=== PATIENT | male | born 1970 | race American Indian/Alaskan Native ===

== ENCOUNTER 2017-07-09 16:18 | Emergency (ER) | payer OTHER ==
[2017-07-09 16:36] VITALS: RESP 18; TEMP 98.5; O2SAT 100; BMI 45.0
--- NOTE | 2017-07-09 18:13 | ED PDOC ---
Arrival/HPI - General Chief Complaint: Lower Extremity Problem/Injury Time Seen by Provider: 07/09/17 16:29 Past Medical History - Infectious Disease Hx of Infectious Diseases: None - Pulmonary Hx Asthma: Yes - Psychiatric Hx Psychophysiologic Disorder: No Hx Substance Use: No - Surgical History Hx Orthopedic Surgery: Yes Other/Comment: R knee - Anesthesia Hx Anesthesia Reactions: No Hx Malignant Hyperthermia: No Family/Social History Smoking Status: Never Smoked Hx Alcohol Use: No Hx Substance Use: No Allergies/Home Meds Allergies/Adverse Reactions: Allergies No Known Allergies Allergy (Verified 05/24/15 10:42) Physical Exam Vital Signs Temp Pulse Resp BP Pulse Ox 07/09/17 16:19 98.5 F 65 18 148/84 100 Medical Decision Making - Medication Orders Current Medication Orders: Discontinued Medications Cyclobenzaprine HCl (Flexeril) 10 mg PO STAT STA Stop: 07/09/17 17:27 Ibuprofen (Motrin Tab) 600 mg PO STAT STA Stop: 07/09/17 17:27 Disposition/Present on Arrival - Present on Arrival History of DVT/PE: No History of Uncontrolled Diabetes: No Urinary Catheter: No History of Decub. Ulcer: No History Surgical Site Infection Following: None - Disposition Referrals: PCP,NO [Primary Care Provider] - Follow up with primary
--- NOTE | 2017-07-09 18:18 | ED PDOC ---
Arrival/HPI - General Historian: Patient - History of Present Illness Time/Duration: Prior to Arrival Symptom Onset: Sudden Symptom Course: Improving Quality: Stabbing Severity Level: 9 Activities at Onset: Rest Context: Standing - General Chief Complaint: Lower Extremity Problem/Injury Time Seen by Provider: 07/09/17 16:29 - History of Present Illness Narrative History of Present Illness (Text): 07/09/17 18:03 Patient is a 46 year old male with history of asthma (no previous intubations), who presented with complaints of right foot pain which radiated to patients right buttock. Patient states the pain began suddenly when standing at home last night around 7:30 p.m. He rated the pain 9/10 stating it was exacerbated with walking and relieved when not bearing weight on his right buttock. Patient localizes the pain to his right ankle which it radiating to his right knee and right buttock. Patient denies recent travel, outdoor activities, fevers, chills , nausea, vomiting, diarrhea, chest pain, abdominal pain. PMD: Denies PMH: Denies Surgical history: ACL repair of right lower extremity Family history: DM II Allergies: NKDA (Jose D Michelle) Past Medical History - Provider Review Nursing Documentation Reviewed: Yes - Travel History Have you recently traveled outside [place] w/in the past 3 mons?: No - Infectious Disease Hx of Infectious Diseases: None - Pulmonary Hx Asthma: Yes - Psychiatric Hx Psychophysiologic Disorder: No Hx Substance Use: No - Surgical History Hx Orthopedic Surgery: Yes Other/Comment: R knee - Anesthesia Hx Anesthesia Reactions: No Hx Malignant Hyperthermia: No - Patient History Narrative Patient History: Asthma (Jose D Michelle) Family/Social History - Physician Review Nursing Documentation Reviewed: Yes Family/Social History: Diabetes Smoking Status: Never Smoked Hx Alcohol Use: No Hx Substance Use: No Allergies/Home Meds Allergies/Adverse Reactions: Allergies No Known Allergies Allergy (Verified 05/24/15 10:42) Review of Systems - Review of Systems Constitutional: absent: Fatigue, Fevers Eyes: absent: Vision Changes Respiratory: absent: SOB, Cough, Sputum, Wheezing Cardiovascular: Calf Pain (right). absent: Chest Pain Gastrointestinal: absent: Abdominal Pain, Nausea, Vomiting Musculoskeletal: Back Pain (chronic) Neurological: Headache (chronic). absent: Dizziness Psychiatric: absent: Anxiety Physical Exam Vital Signs Reviewed: Yes Temperature: Afebrile Blood Pressure: Hypertensive Pulse: Regular Respiratory Rate: Normal Appearance: Positive for: Well-Appearing Pain Distress: Mild Mental Status: Positive for: Alert and Oriented X 3 - Systems Exam Head: Present: Atraumatic, Normocephalic Pupils: Present: PERRL Extroacular Muscles: Present: EOMI Conjunctiva: Present: Normal Mouth: Present: Moist Mucous Membranes Neck: Present: Normal Range of Motion Respiratory/Chest: Present: Clear to Auscultation, Good Air Exchange. No: Wheezes, Rhonchi Cardiovascular: Present: Regular Rate and Rhythm, Murmurs, Normal S1, S2 Abdomen: Present: Normal Bowel Sounds. No: Tenderness, Distention Back: No: CVA Tenderness, Pain with Leg Raise Upper Extremity: Present: Normal Inspection. No: Cyanosis, Edema Lower Extremity: Present: Normal Inspection. No: Edema Neurological: Present: GCS=15, CN II-XII Intact, Speech Normal Skin: Present: Warm, Normal Color Psychiatric: Present: Alert, Oriented x 3, Normal Insight, Normal Concentration Vital Signs Temp Pulse Resp BP Pulse Ox 07/09/17 19:05 98.5 F 70 18 135/80 100 07/09/17 16:19 98.5 F 65 18 148/84 100 Medical Decision Making Re-evaluation Time: 18:20 Reassessment Condition: Re-examined, Improved ED Course and Treatment: 07/09/17 18:34 Patient re-evaluated after being administered flexeril and motrin. Patient states his pain is improved. (Jose D Michelle) Patient presents to emergency department complaining of right foot pain radiating to right knee and right buttock. Patient states pain is 9/10 when ambulating. Patient Seen With Resident: In agreement with resident note which contains more details about the patient. Patient was seen and evaluated with resident. Came up with plan and treatment together. Contrary to physical exam of resident, I did note that patient had tenderness along the dorsal side of his right foot. No calf tenderness. No leg swelling. No laceration. Neurovascularly intact. Patient improved with medications. He was able to ambulate with no ataxia. Discharge instructions were given for followup. (Neville Kohler) - Lab Interpretations Lab Results: Lab Results 07/09/17 17:59: POC Glucose (mg/dL) 131 H - Medication Orders Current Medication Orders: Discontinued Medications Cyclobenzaprine HCl (Flexeril) 10 mg PO STAT STA Stop: 07/09/17 17:27 Last Admin: 07/09/17 17:58 Dose: 10 mg Ibuprofen (Motrin Tab) 600 mg PO STAT STA Stop: 07/09/17 17:27 Last Admin: 07/09/17 17:58 Dose: 600 mg Disposition/Present on Arrival - Present on Arrival Any Indicators Present on Arrival: No History of DVT/PE: No History of Uncontrolled Diabetes: No Urinary Catheter: No History of Decub. Ulcer: No History Surgical Site Infection Following: None - Disposition Have Diagnosis and Disposition been Completed?: Yes Disposition Time: 18:38 Patient Plan: Discharge - Disposition Diagnosis: Foot tendinitis Disposition: HOME/ ROUTINE Condition: IMPROVED Discharge Instructions (ExitCare): Tendonitis Print Language: MALAWIAN Additional Instructions: Mr Spivey, thank you for letting us take care of you today. Your provider was Dr. Kohler You were treated for Foot tendonitis. The emergency medical care you received today was directed at your acute symptoms. If you were prescribed any medication, please fill it and take as directed. It may take several days for your symptoms to resolve. Return to the Emergency Department if your symptoms worsen, do not improve, or if you have any other problems. Please contact your doctor or call one of the physicians/clinics you have been referred to that are listed on the Patient Visit Information form that is included in your discharge packet. Bring any paperwork you were given at discharge with you along with any medications you are taking to your follow up visit. Our treatment cannot replace ongoing medical care by a primary care provider (PCP) outside of the emergency department. Thank you for allowing the [facility] team to be part of your care today. If you had an X-Ray or CT scan: A Radiologist will review the ED reading if any change in treatment is needed we will contact you. If you had a blood, urine, or wound culture: It will take several days for the results, if any change in treatment is needed we will contact you. If you had an STI test: It will take 48 hours for the results. Please call after 1 week if you have not heard back. Prescriptions: Cyclobenzaprine [Cyclobenzaprine HCl] 10 mg PO Q8 PRN #20 tab PRN Reason: Pain, Severe (8-10) Naproxen 250 mg PO BID PRN #20 tablet PRN Reason: Pain, Moderate (4-7) [place] [facility] [place] - Follow up with primary PCP,NO [Primary Care Provider] - Follow up with primary Forms: [facility] (Czech), WORK NOTE
[2017-07-09 20:33] VITALS: BP 135/80; PULSE 70
--- NOTE | 2017-07-10 08:24 | CARD ---
APPROVED REPORT EKG Measurement Heart [id number] <Conclusion> Normal sinus rhythm Incomplete right bundle branch block Leftward axis
== END 2017-07-09 19:05 | disposition home or self-care (01) ==
LOC: ED 16:18
DX: M77.8 Other enthesopathies, not elsewhere classified (principal)